=== PATIENT | male | born 1945 | race Caucasian/White ===

== ENCOUNTER 2016-04-11 07:09 | Day surgery (SDC) | payer BC ==
[~2016-04-11] VITALS: Ht 180.3 cm; Wt 106.8 kg
[2016-04-11] VITALS (11 sets, daily range): BP systolic 100–124; BP diastolic 63–81; PULSE 75–94; TEMP 97.5–97.9
[2016-04-11] MEDS ORDERED: MICARDIS HCT 251 TAB PO (07:23)
[2016-04-11] MEDS ORDERED: MOBIC15 MG PO (07:23)
[2016-04-11] MEDS ORDERED: VICTOZA6 MG/ML SQ (07:24)
[2016-04-11] MEDS ORDERED: NORVASC 5MG5 MG/TAB PO (07:24)
[2016-04-11] MEDS ORDERED: LASIX 40MG TABL40 MG PO (07:25)
[2016-04-11] MEDS ORDERED: FARXIGA10 PO (07:26)
[2016-04-11] MEDS ORDERED: ASPIRIN E.C. 8181 MG PO (07:27)
[2016-04-11] MEDS ORDERED: MASON NATURAL1200 MG PO (07:27)
[2016-04-11] MEDS ORDERED: ZOCOR 40MG40 MG PO (07:28)
[2016-04-11] MEDS ORDERED: ALEVE 220MG220 MG PO (07:28)
[2016-04-11] MEDS ORDERED: FLOMAX 0.40.4 MG/CAP PO (07:29)
[2016-04-11] MEDS ORDERED: STOOL SOFTENER100 M2 PO (07:30)
[2016-04-11] MEDS ORDERED: GLUCOTROL10 MG PO (07:31)
[2016-04-11] MEDS ORDERED: B-12 500 MCG PO (07:31)
[2016-04-11] MEDS ORDERED: GLUCOPHAGE500 MG/TAB PO (07:32)
[2016-04-11 08:42] LABS: HEMATOCRIT 42.9 % (42.0-52.0); HEMOGLOBIN 13.9 g/dl (13.5-18.0); MEAN CELL VOLUME 86 fl (80.0-100.0); MEAN CORPUSCULAR HEMOGLOBIN 28 pg (27.0-31.0); MEAN CORPUSCULAR HGB CONC 32 g/dl (33.0-37.0); MEAN PLATELET VOLUME 11.1 fl (7.4-10.4); PLATELET COUNT 163 K/mm3 (130-400); REDCELL DISTRIBUTION WIDTH-CV 14.1 % (11.5-14.5); WHITE BLOOD COUNT 8.1 K/mm3 (4.8-10.8)
[2016-04-11 08:42] LABS: INR 1.3 (0.8-3.0); PROTHROMBIN TIME 14.4 SECONDS (9.7-12.8)
[2016-04-11 09:49] LABS: CALCIUM 10.2 mg/dL (8.4-10.2); CREATININE, serum 0.71 mg/dL (0.66-1.25)
== END 2016-04-11 14:45 | disposition home or self-care (01) ==
LOC: COL.RAD 07:09
PROVIDERS: Internal Medicine Cardiovascular Disease
DX: R94.39 Abnormal result of other cardiovascular function study (principal); R07.89 Other chest pain
CPT/HCPCS: C1769; C1894; J1644; J2250; J3010; Q9967

== ENCOUNTER 2016-10-16 06:55 | Day surgery (SDC) | payer BC, MEDICARE ==
[~2016-10-16] VITALS: Ht 177.8 cm; Wt 100.1 kg
[2016-10-16] VITALS (7 sets, daily range): BP systolic 98–140; BP diastolic 52–87; PULSE 56–84; TEMP 97.5–98.7
[~2016-10-16 06:55] MED LIST: ALEVE 220MG220 MG PO; ASPIRIN E.C. 8181 MG PO; B-12 500 MCG PO; FARXIGA10 PO; FLOMAX 0.40.4 MG/CAP PO; GLUCOPHAGE500 MG/TAB PO; GLUCOTROL10 MG PO; LASIX 40MG TABL40 MG PO; MASON NATURAL1200 MG PO; MICARDIS HCT 251 TAB PO; MOBIC15 MG PO; NORVASC 5MG5 MG/TAB PO; STOOL SOFTENER100 M2 PO; VICTOZA6 MG/ML SQ; ZOCOR 40MG40 MG PO
[2016-10-16] MEDS ORDERED: COREG 25MG25 MG/TAB PO (07:39)
[2016-10-16 07:54] LABS: HEMATOCRIT 44.8 % (42.0-52.0); HEMOGLOBIN 14.9 g/dl (13.5-18.0); MEAN CELL VOLUME 85 fl (80.0-100.0); MEAN CORPUSCULAR HEMOGLOBIN 28 pg (27.0-31.0); MEAN CORPUSCULAR HGB CONC 33 g/dl (33.0-37.0); PLATELET COUNT 150 K/mm3 (130-400); RED BLOOD COUNT 5.26 M/mm3 (4.20-5.60); REDCELL DISTRIBUTION WIDTH-CV 14.4 % (11.5-14.5); WHITE BLOOD COUNT 7.8 K/mm3 (4.8-10.8)
[2016-10-16 08:00] LABS: INR 1.2 (0.8-3.0); PROTHROMBIN TIME 13.5 SECONDS (9.7-12.8)
[2016-10-16 08:14] LABS: CALCIUM 9.8 mg/dL (8.4-10.2); CREATININE, serum 0.86 mg/dL (0.66-1.25); POTASSIUM 4.6 mmol/L (3.4-5.0)
[2016-10-17 03:05] VITALS: BP 117/84; PULSE 73; TEMP 97.7
[2016-10-17 06:56] LABS: HEMATOCRIT 44.2 % (42.0-52.0); HEMOGLOBIN 14.5 g/dl (13.5-18.0); MEAN CELL VOLUME 86 fl (80.0-100.0); MEAN CORPUSCULAR HEMOGLOBIN 28 pg (27.0-31.0); MEAN CORPUSCULAR HGB CONC 33 g/dl (33.0-37.0); MEAN PLATELET VOLUME 10.3 fl (7.4-10.4); PLATELET COUNT 135 K/mm3 (130-400); RED BLOOD COUNT 5.15 M/mm3 (4.20-5.60); REDCELL DISTRIBUTION WIDTH-CV 14.6 % (11.5-14.5); WHITE BLOOD COUNT 8.7 K/mm3 (4.8-10.8)
[2016-10-17 07:15] LABS: CALCIUM 9.7 mg/dL (8.4-10.2); CREATININE, serum 0.74 mg/dL (0.66-1.25); POTASSIUM 4.3 mmol/L (3.4-5.0)
[2016-10-17 07:24] VITALS: BP 103/54; PULSE 71; TEMP 97.7
[2016-10-17 12:01] VITALS: BP 92/51; PULSE 70; TEMP 97.4
[2016-10-17] MEDS ORDERED: CEPHALEXIN500 M1 PO (12:04)
== END 2016-10-17 12:32 | disposition home or self-care (01) ==
LOC: COL.CAR 06:55 → MEDICAL 12:58 → COL.CAR 10-17 12:32
PROVIDERS: Internal Medicine Cardiovascular Disease
DX: I51.89 Other ill-defined heart diseases (principal); I42.9 Cardiomyopathy, unspecified; I50.9 Heart failure, unspecified; Z95.0 Presence of cardiac pacemaker
CPT/HCPCS: OP; C1769; C1777; C1882; C1894; C1900; J0690; J2250; J3010; J7030; Q9967

== ENCOUNTER 2020-04-06 09:51 | Day surgery (SDC) | payer BC ==
[2020-04-06] VITALS (11 sets, daily range): BP systolic 102–135; BP diastolic 61–90; PULSE 16–84; TEMP 97.4–98.7
[~2020-04-06] VITALS: Ht 177.8 cm; Wt 107.6 kg
[~2020-04-06 09:51] MED LIST changes: +BYSTOLIC10 MG PO; +CEPHALEXIN500 M1 PO; +COREG 25MG25 MG/TAB PO; +MULTIPLE VITAMI1 TA5 PO; +NATURE'S BLEND500 M1 PO; +PRILOSEC 20MG20 MG PO; +VITAMINC1000TA PO
[2020-04-06 10:47] LABS: HEMATOCRIT 42.3 % (42.0-52.0); HEMOGLOBIN 13.8 g/dl (13.5-18.0); MEAN CELL VOLUME 86 fl (80.0-100.0); MEAN CORPUSCULAR HEMOGLOBIN 28 pg (27.0-31.0); MEAN CORPUSCULAR HGB CONC 33 g/dl (33.0-37.0); MEAN PLATELET VOLUME 9.8 fl (7.4-10.4); PLATELET COUNT 187 K/mm3 (130-400); RED BLOOD COUNT 4.93 M/mm3 (4.20-5.60); REDCELL DISTRIBUTION WIDTH-CV 14.4 % (11.5-14.5)
[2020-04-06 10:50] LABS: INR 1.3 (0.8-3.0); PROTHROMBIN TIME 14.1 SECONDS (9.7-12.8)
[2020-04-06 10:55] LABS: CALCIUM 9.8 mg/dL (8.4-10.2); CREATININE, serum 0.9 (0.66-1.25); POTASSIUM 3.9 mmol/L (3.4-5.0)
[2020-04-06] MEDS ORDERED: BASAGLAR K100 UNIT/1 SQ (11:12)
[2020-04-06] MEDS ORDERED: NOVOLOG FLEX100 U/ML SQ (11:14)
[2020-04-06] MEDS ORDERED: STOOL SOFTENER100 M2 PO (11:15)
[2020-04-06] MEDS ORDERED: DETROL LA4 PO (11:17)
--- NOTE | 2020-04-06 12:05 | NUR ---
SEE MERGE DOCUMENTATION FOR MEDICATION ADMINISTRATION TIMES AND INTRA/POST PROCEDURE SEDATION ASSESSMENTS. RIGHT HAND BARBEAU TEST POSITIVE.
[2020-04-06] MEDS ORDERED: PLAVIX 75MG TAB75 MG PO (12:51)
--- NOTE | 2020-04-06 16:07 | NUR ---
Patient discharged home with . INT removed. Discharge instructions provided. Patient express understanding. Escorted to exit by w/c.
== END 2020-04-11 11:28 | disposition home or self-care (01) ==
LOC: COL.CAR 09:51
PROVIDERS: Internal Medicine Cardiovascular Disease
DX: I25.10 Atherosclerotic heart disease of native coronary artery without angina pectoris (principal); R94.39 Abnormal result of other cardiovascular function study
CPT/HCPCS: C1769; J1644; J2250; J3010; Q9967